=== PATIENT | female | born 1960 | race Two or more races ===

== ENCOUNTER → 2024-04-18 | Outpatient (CLI) | payer MEDICARE, SELFPAY ==
[2024-04-18 10:17] LABS: Quantiferon-TB* See Sep Rpt
[2024-04-18 10:46] LABS: Basophils % (Auto) 1 % (0-2.5); Eosinophils # (Auto) 0.2 Thou/mm3 (0.0-0.5); Eosinophils % (Auto) 3 % (0-10); Hematocrit 38.6 % (36.0-46.0); Hemoglobin 13.5 g/dL (12.0-16.0); Immature Granulocytes % (Auto) 0 % (0-0); Immature Granulocytes Auto 0.01 Thou/mm3 (0.00-0.00); Lymphocytes # (Auto) 3.6 Thou/mm3 (1.0-4.8); Lymphocytes % (Auto) 58 % (10-50); Mean Corpuscular Hemoglobin 33.1 pg (25.0-35.0); Mean Corpuscular Volume 95 fL (80-100); Monocytes # (Auto) 0.4 Thou/mm3 (0.0-0.8); Monocytes % (Auto) 7 % (0-12); Neutrophils % (Auto) 31 % (37-80); Nucleated Red Blood Cell % 0 /100 WBC (0); Platelet Count 365 Thou/mm3 (140-440); RDW Standard Deviation 40.7 fL (36.4-46.3); Red Blood Count 4.08 Miln/mm3 (4.00-5.20); White Blood Count 6.2 Thou/mm3 (3.6-11.0)
[2024-04-18 11:26] LABS: Iron 91 mcg/dL (50-170); Percent Iron Saturation 30 % (20-55); Total Iron Binding Capacity 300 mcg/dL (250-425); Unsaturated Iron Binding 209 (225-295)
[2024-04-18 11:32] LABS: Glucose Estimated Average 103 mg/dL (80-131); Hemoglobin A1C 5.2 % Hgb (4.8-6.0)
[2024-04-18 11:50] LABS: Vitamin D 25 Hydroxy Total 38.1 ng/mL (7.3-40.2)
[2024-04-18 11:54] LABS: Amphetamine/Methamp Scrn,U Negative (Negative); Barbiturate Screen,Urine Negative (Negative); Benzodiazepines Screen,Urine Negative (Negative); Benzoylecgonine Screen, Ur Negative (Negative); Fentanyl Screen,Urine Negative (Negative); Opiate Screen,Urine Positive (Negative); THC Screen,Urine Positive (Negative)
[2024-04-18 11:54] LABS: Alanine Aminotransferase 38 U/L (10-49); Albumin, Serum 4.4 gm/dL (3.4-4.8); Alkaline Phosphatase 84 U/L (46-116); Anion Gap 7 (7-16); Aspartate Amino Transferase 26 U/L (0-34); BUN/Creatinine Ratio 11 Ratio (12-20); Bilirubin,Total 1.3 mg/dL (0.3-1.2); Blood Urea Nitrogen 9 mg/dL (9-23); Calcium 9.6 mg/dL (8.3-10.6); Calcium (Corrected) 9.6 mg/dL (8.5-10.1); Carbon Dioxide 26.5 mMol/L (20.0-31.0); Cardiac Risk Estimate 3.4 RATIO (3.7-5.6); Chloride 108 mMol/L (98-107); Cholesterol 169 mg/dL (132-200); Creatinine (Component) 0.8 mg/dL (0.6-1.3); Free T4 (Free Thyroxine) 0.98 ng/dL (0.89-1.76); Globulin 2.2 gm/dL (2.3-3.5); Glucose 102 mg/dL (74-106); HDL Cholesterol 49 mg/dL (40-60); LDL Cholesterol,Calculated 77 mg/dL (0-130); Osmolality,Calculated 279 (275-295); Sodium 141 mMol/L (136-145); Thyroid Stimulating Hormone 0.87 uIU/mL (0.55-4.78); Total Protein 6.6 gm/dL (5.7-8.2); Triglycerides 213 mg/dL (30-150); eGFR > 60 See Note
[2024-04-25 06:59] LABS: T3 Uptake* 25 % (22-35)
== END | disposition home or self-care (01) ==
PROVIDERS: PCP Nurse Practitioner Family; Referring Provider Nurse Practitioner Family; Visit Provider Nurse Practitioner Family
DX: Z00.00 Encounter for general adult medical examination without abnormal findings (principal); F41.9 Anxiety disorder, unspecified; N39.0 Urinary tract infection, site not specified; F12.20 Cannabis dependence, uncomplicated; M25.551 Pain in right hip; G47.00 Insomnia, unspecified; J20.9 Acute bronchitis, unspecified; E55.9 Vitamin D deficiency, unspecified; H66.91 Otitis media, unspecified, right ear; Z23 Encounter for immunization; L03.114 Cellulitis of left upper limb; Z48.02 Encounter for removal of sutures; D50.9 Iron deficiency anemia, unspecified; M54.42 Lumbago with sciatica, left side; M25.511 Pain in right shoulder; M25.561 Pain in right knee; M25.552 Pain in left hip; R68.89 Other general symptoms and signs; F33.1 Major depressive disorder, recurrent, moderate; Z91.89 Other specified personal risk factors, not elsewhere classified; E78.5 Hyperlipidemia, unspecified; S83.232D Complex tear of medial meniscus, current injury, left knee, subsequent encounter; M79.7 Fibromyalgia; L29.9 Pruritus, unspecified; U07.1 COVID-19; E53.8 Deficiency of other specified B group vitamins; Z71.2 Person consulting for explanation of examination or test findings; R09.89 Other specified symptoms and signs involving the circulatory and respiratory systems; A09 Infectious gastroenteritis and colitis, unspecified; D49.2 Neoplasm of unspecified behavior of bone, soft tissue, and skin; S83.271A Complex tear of lateral meniscus, current injury, right knee, initial encounter; R41.3 Other amnesia; M25.562 Pain in left knee; M48.061 Spinal stenosis, lumbar region without neurogenic claudication; I10 Essential (primary) hypertension; R07.9 Chest pain, unspecified; Z20.828 Contact with and (suspected) exposure to other viral communicable diseases; L73.9 Follicular disorder, unspecified; G89.29 Other chronic pain; E78.2 Mixed hyperlipidemia; J30.9 Allergic rhinitis, unspecified; G62.9 Polyneuropathy, unspecified
CPT/HCPCS: 36415; 80053; 80061; 80307; 82306; 83036; 83540; 83550; 84439; 84443; 84479; 85025; 86480

== ENCOUNTER 2024-07-15 20:07 | Emergency (ER) | payer MEDICARE, SELFPAY ==
[2024-07-15 20:09] VITALS: BMI 32.1
[2024-07-15 20:40] VITALS: BP 133/88; PULSE 90; RESP 18; TEMP 36.6; O2SAT 96
--- NOTE | 2024-07-15 20:46 | XR_ITS ---
Examination: PA lateral chest 2 views TECHNIQUE: Upright PA and lateral chest 2 views Date and time: July 15, 2024 1004 hours INDICATIONS: Coughing beginning 4 weeks ago FINDINGS: Normal heart size Lungs are clear. The osseous structures are intact IMPRESSION: No active disease
--- NOTE | 2024-07-15 20:49 | PD.EDURI ---
Upper Respiratory Inf. RME/HPI General Chief Complaint: Flu Like Symptoms Stated Complaint: COUGH Time Seen by Provider: 07/15/24 20:45 Arrival date/time: 07/15/24 20:07 63F with history of anxiety and HTN presents to ED with 4 weeks of productive cough. Patient has not seen PCP and is not on ABX. Limitations: no limitations Related Data Home Medications ?Medication ?Instructions ?Recorded ?Confirmed duloxetine 60 mg capsule,delayed 60 mg PO QDAY ##30 09/02/16 08/22/20 release gabapentin 300 mg capsule 300 mg PO BID ##60 09/02/16 08/22/20 alprazolam 0.25 mg tablet 0.25 mg PO QDAY PRN Pain 08/22/20 08/22/20 amitriptyline 100 mg tablet 100 mg PO HS 08/22/20 08/22/20 atorvastatin 20 mg tablet 20 mg PO QDAY 08/22/20 08/22/20 hydrocodone 10 mg-acetaminophen 1 tab PO Q8H PRN Pain 08/22/20 08/22/20 325 mg tablet losartan 50 mg tablet 50 mg PO QDAY 08/22/20 08/22/20 simvastatin 20 mg tablet 20 mg PO QDAY 08/22/20 08/22/20 Previous Rx's ?Medication ?Instructions ?Recorded acetaminophen 500 mg tablet 500 mg PO QID PRN pain #60 tabs 03/26/22 (Tylenol Extra Strength) cholecalciferol (vitamin D3) 125 125 mcg PO QDAY #14 tabs 03/26/22 mcg (5,000 unit) tablet (Vitamin D3) ibuprofen 400 mg tablet (IBU) 400 mg PO Q6H PRN pain #60 tabs 03/26/22 zinc sulfate 50 mg zinc (220 mg) 50 mg PO QDAY #14 caps 03/26/22 capsule (Zinc-220) ciprofloxacin HCl 500 mg tablet 500 mg PO BID #14 tabs 11/23/23 (Cipro) Allergies Allergy/AdvReac Type Severity Reaction Status Date / Time Penicillins Allergy Severe RASH Verified 07/15/24 20:15 Review of Systems Review of Systems Systems Reviewed: All systems reviewed, normal except as documented Constitutional Constitutional: Reports system reviewed and no additional complaints, except as documented, Denies fever(s) and Denies headache(s) ENT Ears, Nose, Mouth, and Throat: Denies disequilibrium and Denies headache(s) Cardiovascular Cardiovascular: Reports system reviewed and no additional complaints, except as documented, Denies chest pain and Denies dyspnea Respiratory Respiratory: Reports system reviewed and no additional complaints, except as documented, Reports as per HPI, Reports cough and Denies dyspnea Gastrointestinal Gastrointestinal: Reports system reviewed and no additional complaints, except as documented, Denies abdominal pain, Denies nausea and Denies vomiting Neurologic Neurologic: Reports system reviewed and no additional complaints, except as documented, Denies confusion, Denies disequilibrium and Denies headache(s) Psychiatric Psychiatric: Denies confusion Past Medical History Past Medical History CARDIAC: Positive Cardiac Disorders and Hypertension; Negative Congestive Heart Failure RESPIRATORY: Negative Chronic Obstructive Pulmonary Disease (COPD) GENITOURINARY: Negative Renal Disease MUSCULOSKELETAL: Positive Musculoskeletal Disorders, Arthritis, Osteoporosis and Degenerative Disk Disease ENDOCRINE: Negative Diabetes Mellitus Type 1 or Diabetes Mellitus Type 2 Social History SMOKING STATUS: Former smoker ED Exam General Limitations: Present no limitations General appearance: Present alert, in no apparent distress and anxious Head Head exam: Present atraumatic Eye Eye exam: Present normal appearance, PERRL and EOMI ENT ENT exam: Present normal exam, normal oropharynx and mucous membranes moist Neck Neck exam: Present normal inspection, full ROM and trachea midline Chest Chest inspection: Present normal inspection and symmetric chest wall rise Respiratory Respiratory exam: Present normal lung sounds bilaterally Cardiovascular Cardiovascular exam: Present regular rate, normal rhythm and normal heart sounds Abdominal Exam Abdominal exam: Present soft and normal bowel sounds Extremities Exam Extremities exam: Present normal inspection and full ROM Back Exam Back exam: Present normal inspection and full ROM Neurological Exam Neurological exam: Present alert, oriented X3 and CN II-XII intact Psychiatric Psychiatric exam: Present normal affect and normal mood Skin Skin exam: Present warm, dry, intact and normal color Course Quality Measures none Orders Category Date Time Status XR chest 2V Stat Exams 07/15/24 20:46 Completed Dexamethasone Inj [Decadron Inj] Med 07/15/24 21:45 Discontinued 10 mg PO X1 ONE Vital Signs Vital signs: Vital Signs Temperature 98 F 07/15/24 20:40 Pulse Rate 90 07/15/24 20:40 Respiratory Rate 18 07/15/24 20:40 Blood Pressure 133/88 H 07/15/24 20:40 Pulse Oximetry (%) 96 07/15/24 20:40 Oxygen Delivery Method Room Air 07/15/24 20:40 O2 at 96% on RA and WNLs Upper Respiratory Infection MDM Narrative MDM Narrative:: 63F with history of anxiety and HTN presents to ED with 4 weeks of productive cough. Patient has not seen PCP and is not on ABX. Physical exam reveals clear lungs and normal WOB. No sinus tenderness. Patient is afebrile, alert, but anxious. CXR normal. Patient data External records reviewed:: [facility] previous records Clinical information provided by:: patient Social determinants that could affect healthcare access:: mental health Patient has the following chronic illnesses:: anxiety and HTN How is presenting disease/condition affected by chronic disease/condition?: exacerbated by Evaluation data The following diagnostics were reviewed and interpreted by me:: radiology exam(s) Lab and/or radiology exams considered but not ordered:: ordered Interpretation Summary: above Medications / Prescriptions Medications or Prescriptions considered but not ordered:: ordered Medication administrations:: Medication Administration History Discontinued Medications Dexamethasone Sodium Phosphate (Dexamethasone Sod Phos Inj 10 Mg/Ml Vial) 10 mg PO X1 ONE Stop: 07/15/24 21:46 Last Admin: 07/15/24 21:56 Dose: 10 mg Documented By: OA above Consultations Consultation(s) initiated? (list below): No Diagnosis Upper Respiratory Differential Diagnosis: upper respiratory infection, croup, otitis media, sinusitis, viral infection, bronchitis, influenza, pharyngitis and other (CAP, subacute cough) Most likely diagnosis given after review of the tests above:: subacute cough Admission Indicated Admission indicated?: not indicated Admission Request Was there a request for admission?: No Disposition Plan Disposition Plan: Discharge Discharge Attestation Discharge Attestation: The patient and all family members were given an opportunity to ask questions and understood the discharge instructions. Discharge instructions specifically effects, indications for sooner follow up or return to the emergency department, and the expected course of current diagnosis. Patient condition: Stable Discharge Plan Plan Patient Disposition: HOME (Self Care) Discharge Disposition comment: Stable Prescriptions/Referrals Prescriptions/Med Rec: No Action gabapentin 300 MG capsule 300 mg PO BID Qty: 60 duloxetine 60 mg Capsule,Delayed Release(Dr/Ec) 60 mg PO QDAY Qty: 30 losartan 50 mg Tablet 50 mg PO QDAY alprazolam 0.25 mg Tablet 0.25 mg PO QDAY PRN (Reason: Pain) atorvastatin 20 mg tablet 20 mg PO QDAY hydrocodone-acetaminophen 10-325 mg tablet 1 tab PO Q8H PRN (Reason: Pain) simvastatin 20 mg tablet 20 mg PO QDAY amitriptyline 100 mg tablet 100 mg PO HS zinc sulfate [Zinc-220] 50 mg zinc (220 mg) capsule 50 mg PO QDAY Qty: 14 0RF cholecalciferol (vitamin D3) [Vitamin D3] 125 mcg (5,000 unit) tablet 125 mcg PO QDAY Qty: 14 0RF acetaminophen [Tylenol Extra Strength] 500 mg tablet 500 mg PO QID PRN (Reason: pain) Qty: 60 0RF ibuprofen [IBU] 400 mg tablet 400 mg PO Q6H PRN (Reason: pain) Qty: 60 0RF ciprofloxacin HCl [Cipro] 500 mg tablet 500 mg PO BID Qty: 14 0RF Referrals: No Primary/Family,Physician [Primary Care Provider] - In 1 week Problem List Clinical Impression: Subacute cough Patient/Caregiver Discharge Instructions Education Materials: ED Cough Chronic Uncertain Cause Adult Additional Instructions: Please follow-up with PCP within 24-48 hours and return immediately if symptoms worsen. Benadryl is good for cough, congestion, and sleep. Print Language: Armenian Stand Alone Forms: Patient Portal Info Letter PA/PRIMARY CARE PEDIATRICIAN Supervising Physician PA/PRIMARY CARE PEDIATRICIAN Supervising Physician: Dr. Nunn
[2024-07-15] MEDS: DEXAMETHASONE SOD PHOS INJ 10 MG/ML VIAL PO (21:56)
== END 2024-07-15 22:24 | disposition home or self-care (01) ==
PROVIDERS: Emergency Provider Emergency Medicine
DX: R05.2 Subacute cough (principal)
CPT/HCPCS: 71046; 99283; J1100